=== PATIENT | male | born 1970 | race Caucasian/White ===

== ENCOUNTER 2021-07-16 21:39 | Inpatient (IN) | payer OTHER ==
[~2021-07-16] VITALS: Ht 182.9 cm; Wt 95.3 kg
[~2021-07-16 21:39] MED LIST: MIRALAX 119 GR119 GM PO; OMNICEF 300 MG300 MG PO; ZOFRAN4 MG PO
[2021-07-16 23:22] LABS: RED BLOOD COUNT 6.35 M/UL (4.20-5.50); WHITE BLOOD COUNT 12.3 K/UL (4.5-11.0)
[2021-07-17 00:16] LABS: BUN/CREATININE RATIO 24 (0-10)
[2021-07-17] MEDS ORDERED: ISOSORBIDE MONO60 MG PO (10:07)
[2021-07-17] MEDS ORDERED: NEURONTIN800 MG PO (10:08)
[2021-07-17] MEDS ORDERED: LANSOPRAZOLE30 MG PO (10:09)
[2021-07-17] MEDS ORDERED: LANTUS INS100 UTS/M1 SQ (10:10)
[2021-07-17] MEDS ORDERED: METFORMIN HCL1000 MG PO (10:11)
[2021-07-17] MEDS ORDERED: OZEMPIC1 MG/0.71 SQ ×2 (10:17→11:23)
[2021-07-17] MEDS ORDERED: ZOCOR 40 MG TAB40 MG PO (10:17)
[2021-07-17] MEDS ORDERED: ASPIRIN EC81 MG PO (10:19)
[2021-07-17] MEDS ORDERED: FARXIGA10 MG PO (10:20)
[2021-07-17] MEDS ORDERED: COREG6.25 MG PO (10:22)
[2021-07-17] MEDS ORDERED: PROAIR HFA8.5 GM INH (10:25)
[2021-07-17 10:42] LABS: HEMOGLOBIN 19.1 gm/dl (14.0-17.5); RED BLOOD COUNT 6.1 M/UL (4.20-5.50); WHITE BLOOD COUNT 9.9 K/UL (4.5-11.0)
[2021-07-17 12:22] LABS: BUN/CREATININE RATIO 23 (0-10)
[2021-07-18 07:31] LABS: RED BLOOD COUNT 5.81 M/UL (4.20-5.50); WHITE BLOOD COUNT 8.1 K/UL (4.5-11.0)
[2021-07-18 07:51] LABS: BUN/CREATININE RATIO 16 (0-10)
== END 2021-07-18 16:10 | disposition home or self-care (01) | DRG 439 ==
LOC: ER1 21:39 → CDU 07-17 03:51 → M/S 07-17 15:04
PROVIDERS: Emergency Medicine; Internal Medicine; ADMIT Internal Medicine
DX: K85.90 Acute pancreatitis without necrosis or infection, unspecified (principal); B18.1 Chronic viral hepatitis B without delta-agent; E87.1 Hypo-osmolality and hyponatremia; Z20.822 Contact with and (suspected) exposure to COVID-19; E87.5 Hyperkalemia; E86.0 Dehydration; I10 Essential (primary) hypertension; K74.60 Unspecified cirrhosis of liver; E11.9 Type 2 diabetes mellitus without complications; F17.210 Nicotine dependence, cigarettes, uncomplicated; K76.0 Fatty (change of) liver, not elsewhere classified; F41.9 Anxiety disorder, unspecified; Z90.49 Acquired absence of other specified parts of digestive tract; Z83.3 Family history of diabetes mellitus; Z79.899 Other long term (current) drug therapy
CPT/HCPCS: 36415; 76700; 80048; 80053; 80061; 81001; 82550; 82553; 82962; 83036; 83605; 83690; 83735; 84100; 84439; 84443; 84484; 85025; 85027; 85652; 86140; 96365; 96375; 96376; 99285; C9113; J1650; J2270; J2405; J2543; J7120; Q9967; U0002